=== PATIENT | female | born 1970 | race Caucasian/White ===

== ENCOUNTER 2017-09-05 13:00 | Emergency (ER) | payer MEDICARE, MEDICAID ==
[~2017-09-05] VITALS: Ht 157.5 cm; Wt 125.8 kg
[2017-09-05 13:59] VITALS: BP 148/92
== END 2017-09-05 14:00 | disposition home or self-care (01) ==
LOC: ER 13:00
DX: F19.20 Other psychoactive substance dependence, uncomplicated (principal); E11.9 Type 2 diabetes mellitus without complications; I10 Essential (primary) hypertension; J44.9 Chronic obstructive pulmonary disease, unspecified; F12.10 Cannabis abuse, uncomplicated; F17.200 Nicotine dependence, unspecified, uncomplicated; Z88.5 Allergy status to narcotic agent
CPT/HCPCS: 99281

== ENCOUNTER 2020-04-05 13:46 | Emergency (ER) | payer MEDICARE, MEDICAID ==
[~2020-04-05] VITALS: Ht 162.6 cm; Wt 107.7 kg
[2020-04-05 14:25] LABS: BASOPHILS # (AUTO) 0.1 X10'3 (0-0.2); BASOPHILS % (AUTO) 1.1 % (0-1); EOSINOPHILS # (AUTO) 0.3 X10'3 (0-0.9); EOSINOPHILS % (AUTO) 2.4 % (0-6); HEMATOCRIT 40.4 % (35.0-45.0); HEMOGLOBIN 13.7 g/dl (12.0-16.0); LYMPHOCYTES # (AUTO) 4.1 X10'3 (1.1-4.8); LYMPHOCYTES % (AUTO) 34.8 % (21-51); MEAN CORPUSCULAR HEMOGLOBIN 30.5 PG (27.0-31.0); MEAN CORPUSCULAR HGB CONC 33.8 g/dL (33.0-36.5); MEAN CORPUSCULAR VOLUME 90.1 FL (78-98); MEAN PLATELET VOLUME 7.8 FL (7.4-10.4); MONOCYTES # (AUTO) 0.7 X10'3 (0-0.9); MONOCYTES % (AUTO) 6.4 % (2-12); NEUTROPHILS # (AUTO) 6.4 X10'3 (1.8-7.7); NEUTROPHILS % (AUTO) 55.3 % (42-75); PLATELET COUNT 398 X10'3 (140-440); RED BLOOD COUNT 4.49 X10'6 (4.20-5.60); RED CELL DISTRIBUTION WIDTH 13.7 % (11.5-14.5); WHITE BLOOD COUNT 11.7 X10'3 (4.5-11.0)
[2020-04-05 14:34] LABS: ALANINE AMINOTRANSFERASE 17 U/L (12-78); ALBUMIN/GLOBULIN RATIO 0.9 (1.1-1.5); ALKALINE PHOSPHATASE 80 IU/L (46-116); ANION GAP 5 (8-16); ASPARTATE AMINO TRANSFERASE 8 U/L (10-37); BILIRUBIN,TOTAL 0.2 MG/DL (0.1-1.0); BLOOD UREA NITROGEN 17 MG/DL (7-18); BUN/CREATININE RATIO 19.5 (6.6-38.0); CALCIUM 9.3 MG/DL (8.5-10.1); CHLORIDE 100 MMOL/L (99-107); CREATININE 0.87 MG/DL (0.40-0.90); GLUCOSE 213 MG/DL (70-104); POTASSIUM 4.3 MMOL/L (3.5-5.1); SODIUM 131 MMOL/L (135-145); TOTAL PROTEIN 8.3 G/DL (6.4-8.2); eGFR 69 ML/MIN
--- NOTE | 2020-04-05 14:46 | NUR ---
Pt reports a positive STD dx by her PCP, but she has not started abx as yet. Primary RN Tino notified.
[2020-04-05] MEDS ORDERED: CefTRIAXone 250MG IM Kit w/LIDOcaine IM ONE (15:00)
[2020-04-05] MEDS ORDERED: azithromycin 250mg tablet PO ONE (15:00)
[2020-04-05 15:36] VITALS: BP 121/78
== END 2020-04-05 15:37 | disposition home or self-care (01) ==
LOC: ER 13:47
DX: R07.89 Other chest pain (principal); M54.6 Pain in thoracic spine; Z20.2 Contact with and (suspected) exposure to infections with a predominantly sexual mode of transmission; E11.9 Type 2 diabetes mellitus without complications; F15.90 Other stimulant use, unspecified, uncomplicated; Z88.5 Allergy status to narcotic agent
CPT/HCPCS: 36415; 71045; 80053; 83880; 84484; 85025; 93005; 96372; 99285; J0696

== ENCOUNTER 2024-04-18 08:38 | Day surgery (SDC) | payer MEDICAID, MEDICARE ==
[~2024-04-18] VITALS: Ht 162.6 cm; Wt 118.2 kg
[~2024-04-18 08:38] MED LIST: CHOL20003 PO; DULO60CA65 PO; FENO134C22 PO; LEVO175T37 PO; LISI10TA27 PO; METF-438 PO; PROBIOTIC; ROSU40TA89 PO; SEMA2PEN SQ; SUPER B COMPLEX
[2024-04-18 09:21] VITALS: BP 115/70; PULSE 74; RESP 18
[2024-04-18] MEDS ORDERED: propofol inj 20 ML IV ONE ×3 (11:16)
[2024-04-18] MEDS ORDERED: LIDOcaine 1%/PF 5ML 10 MG/ML VIAL ONE (11:16)
[2024-04-18 11:25] VITALS: BP 95/66; PULSE 69; RESP 18; O2SAT 98
[2024-04-18 11:35] VITALS: BP 121/82; PULSE 69; RESP 14; O2SAT 97
[2024-04-18 11:45] VITALS: BP 111/60; PULSE 66; RESP 12; O2SAT 98
[2024-04-18 11:55] VITALS: BP 110/63; PULSE 69; RESP 14; O2SAT 97
== END 2024-04-18 12:00 | disposition home or self-care (01) ==
LOC: PRE-OP 08:38 → GI LAB 12:00
PROVIDERS: ATTEND Internal Medicine Gastroenterology
DX: R19.4 Change in bowel habit (principal); K57.30 Diverticulosis of large intestine without perforation or abscess without bleeding; D12.2 Benign neoplasm of ascending colon; R94.31 Abnormal electrocardiogram [ECG] [EKG]; I10 Essential (primary) hypertension; E11.9 Type 2 diabetes mellitus without complications; E03.9 Hypothyroidism, unspecified; E66.9 Obesity, unspecified; K21.9 Gastro-esophageal reflux disease without esophagitis; J44.89 Other specified chronic obstructive pulmonary disease; F32.A Depression, unspecified; M79.7 Fibromyalgia; M06.9 Rheumatoid arthritis, unspecified; Z79.890 Hormone replacement therapy; Z79.899 Other long term (current) drug therapy; Z90.49 Acquired absence of other specified parts of digestive tract; Z90.89 Acquired absence of other organs; Z98.51 Tubal ligation status; Z68.41 Body mass index [BMI] 40.0-44.9, adult; Z88.5 Allergy status to narcotic agent
CPT/HCPCS: 45385; 93005; J2704; J3490; J7030; Z7512; 99152; C1889

== ENCOUNTER → 2024-11-22 | Outpatient (CLI) | payer MEDICAID ==
[~2024-11-22] VITALS: Ht 184.2 cm; Wt 117.9 kg
[2024-11-22] MEDS: albuterol 2.5 MG/3 ML nebule NEB ONE (13:23)
[2024-11-22 13:24] VITALS: PULSE 85; RESP 18; O2SAT 96
[2024-11-22 13:37] VITALS: PULSE 92; RESP 16
== END | disposition home or self-care (01) ==
LOC: RT 12:53
PROVIDERS: ATTEND Physician Assistant
DX: R06.02 Shortness of breath (principal)
CPT/HCPCS: 94060; 94760; A4620